=== PATIENT | male | born 1985 | race Caucasian/White ===

== ENCOUNTER 2021-08-02 11:05 | Emergency (ER) | payer OTHER, SELFPAY ==
[2021-08-02 11:16] VITALS: BP 144/87; PULSE 112; RESP 18; TEMP 36.8; O2SAT 99
--- NOTE | 2021-08-02 11:16 | ED.URI ---
HPI - URI/Sore Throat General Chief Complaint: Upper Respiratory Infection Stated Complaint: Sinus,Headache Time Seen by Provider: 08/02/21 11:20 Source: patient and RN notes reviewed Mode of arrival: ambulatory Limitations: no limitations History of Present Illness HPI Narrative: 35-year-old male presents with concern for 2 to 3-day history of sinus pain, pressure, ear pressure. He denies cough, fever, bodies, chills, sweats. He reports he has been using Visine and a 5 vitamin C without relief. He reports he has not vaccinated for COVID or flu. He denies known sick contacts. MD elicited complaint: rhinorrhea and nasal congestion Related Data Allergies Allergy/AdvReac Type Severity Reaction Status Date / Time No Known Allergies Allergy Verified 08/02/21 11:23 Review of Systems Review of Systems: CONSTITUTIONAL: Denies malaise, chills, sweats, or fever. EYES: Denies visual changes, redness, or discharge. ENT: Reports rhinorrhea, congestion, sinus pain, otalgia. Denies sore throat. CARDIOVASCULAR: Denies chest pain, palpitations, or edema. RESPIRATORY: Denies cough. Denies dyspnea. GASTROINTESTINAL: Denies abdominal pain, nausea, vomiting, diarrhea SKIN: Denies rash or itching. MUSCULOSKELETAL: Denies myalgia. NEUROLOGIC: Denies headache. All systems reviewed & are unremarkable except as noted in HPI and below PMFSH Comments At time of signature, agree with nursing past medical, surgical, social and family history. There is no relevant family history pertinent to the presenting complaint Exam Narrative: GENERAL: Well-appearing, well-nourished, and in no acute distress. HEAD: Normocephalic EYES: PERRLA, conjunctivae clear ENT: Nares clear, turbinates edematous and erythematous, clear discharge. Mucous membranes moist. TM pearly rucker with dull light reflex bilaterally; no tragal tenderness. Oropharynx not erythematous without lesions. Tonsils not enlarged and without exudate, no drooling, no hoarseness, no trismus, uvula midline. NECK: Supple. No lymphadenopathy CHEST: Clear to auscultation, breath sounds equal. No wheezing, rhonchi, rales, or stridor. No respiratory distress, speaks in full sentences. HEART: Regular rate and rhythm. No murmur heard. SKIN: Warm, dry, no rash. NEURO: Alert and oriented x3. PSYCH: Normal mood and affect Course Course Emergency Course: Patient is aware of diagnosis, understands and agrees to treatment plan. Anticipatory guidance given. Patient agrees to follow-up as directed and is aware of reasons to seek care at the emergency department. Portions of this record may have been created with voice recognition software Level of Care: Express Care Visit Vital Signs Vital signs: Reviewed. MDM - URI/Sore Throat MDM Narrative Medical decision making narrative: Differential diagnosis considered: Gutiérrez virus, strep pharyngitis, allergic rhinitis, upper respiratory tract infection, sinusitis, rhinosinusitis, nasopharyngitis. viral pharyngitis, otitis media, otitis externa, pneumonia, bronchitis, viral cough syndrome, viral syndrome, and influenza. Exam findings show no acute concerns or changes; patient is non-toxic appearing and is in no distress. Patient is appropriate for outpatient treatment and follow-up. Lab Data Attestation: I reviewed the patient's lab results. Critical Care Time Critical Care Time Critical Care Time: No Discharge Plan Discharge Clinical Impression: Upper respiratory infection Qualifiers: URI type: unspecified viral URI Qualified Code(s): J06.9 - Acute upper respiratory infection, unspecified Patient Disposition: Home, Self-Care Condition: Stable Instructions: Upper Respiratory Infection (ED) Additional Instructions: Your COVID and flu tests are negative. Your symptoms are likely caused from a viral illness. Symptomatic treatment of a sinus infection aims to relieve symptoms. These treatments do not shorten the duration of illness. Nonprescription pain
== END 2021-08-02 11:56 | disposition home or self-care (01) ==
PROVIDERS: Emergency Provider Nurse Practitioner
DX: J06.9 Acute upper respiratory infection, unspecified (principal); Z20.822 Contact with and (suspected) exposure to COVID-19
CPT/HCPCS: 87426; 87804; 99203; C9803; G0463

== ENCOUNTER 2022-05-03 09:22 | Emergency (ER) | payer OTHER, SELFPAY ==
--- NOTE | 2022-05-03 09:24 | ED.ABDPAIN ---
HPI - Abdominal Pain General Chief Complaint: Nausea/Vomiting/Diarrhea Stated Complaint: Abdominal Pain Time Seen by Provider: 05/03/22 09:24 Source: patient Mode of arrival: ambulatory Limitations: no limitations History of Present Illness HPI narrative: Vikas is a 36-year-old male patient presenting to the clinic today with complaints of heartburn, nausea, and vomiting. He reports he vomited 2 days ago and thought he had will was coffee-ground emesis. He reports that he has gone through known divorce and has been a heavy drinker for the past year. States he drinks vodka 1 pt per day routinely. States he does get frequent heartburn. He denies any abdominal pain currently. He denies having any pain after eating. He reports that vomiting was only 1 time however he still has some nausea. He denies any blood in his stools. Last bowel movement was yesterday. He is passing gas normally. He is anxious in the clinic today. Related Data Allergies Allergy/AdvReac Type Severity Reaction Status Date / Time No Known Allergies Allergy Verified 05/03/22 10:02 Review of Systems Review of Systems: Pertinent positives per HPI. Patient denies any fever, chills, rash, headache, visual changes, dizziness, cough, runny nose, sore throat, shortness of breath, chest pain, palpitations, diarrhea, constipation, or any urinary issues. PMFSH Comments At the time of my signature, I reviewed and agree with the nursing past medical, surgical, social, and family history. There is no relevant family history pertinent to the patient complaint. Exam Narrative: General: Well-developed, well nourished, anxious appearing Head: Normocephalic, atraumatic. Cardio: Regular rate and rhythm, s1 and s2 normal, no murmur appreciated. Resp: Clear to auscultation bilaterally, no rhonchi, rales, wheezing or rubs. Abdomen: Soft, pliable, bowel sounds present in all quadrants, non-tender to palpation, no organomegly, no CVAT tenderness. Course Course Emergency Course: Portions of this record may have been created with voice recognition software. Level of Care: Express Care Visit Vital Signs Vital signs: Vital Signs Temperature 37.2 C 05/03/22 09:58 Pulse Rate 135 H 05/03/22 09:58 Respiratory Rate 18 05/03/22 09:58 Blood Pressure 146/89 H 05/03/22 09:58 Pulse Oximetry 99 05/03/22 09:58 Oxygen Delivery Room Air 05/03/22 09:58 Temperature 37.2 C 05/03/22 09:58 Pulse Rate 135 H 05/03/22 09:58 Respiratory Rate 18 05/03/22 09:58 Blood Pressure 146/89 H 05/03/22 09:58 Pulse Oximetry 99 05/03/22 09:58 Oxygen Delivery Room Air 05/03/22 09:58 Vital signs reviewed MDM - Abdominal Pain MDM Narrative Medical decision making narrative: At the time of visit patient is resting on the exam table. I suspect patient has GERD/nausea vomiting. Will send in prescription for Protonix and Zofran. Recommend following up with PCP for further workup if symptoms persist. Supportive measures were discussed with the patient he voiced understanding of discharge instructions agrees to treatment plan Differential Diagnosis Differential diagnosis: Likely abdominal pain, gastroenteritis, pancreatitis and other (GERD) Discharge Plan Discharge Clinical Impression: GERD (gastroesophageal reflux disease) Qualifiers: Esophagitis presence: esophagitis presence not specified Qualified Code(s): K21.9 - Gastro-esophageal reflux disease without esophagitis Nausea & vomiting Qualifiers: Vomiting type: hematemesis Qualified Code(s): K92.0 - Hematemesis Patient Disposition: Home, Self-Care Condition: Stable Instructions: Antibiotic Form Additional Instructions: Take Protonix as prescribed for GERD Take Zofran as needed for nausea Avoid drinking alcohol Increase fluids and stay well hydrated Avoid eating spicy or fatty foods, chocolate, or drinking caffeine. Avoid foods that cause you to feel bloated. Stop smoking [place]
[2022-05-03 09:58] VITALS: BP 146/89; PULSE 135; RESP 18; TEMP 37.2; O2SAT 99
== END 2022-05-03 10:22 | disposition home or self-care (01) ==
PROVIDERS: Emergency Provider Nurse Practitioner Family
DX: K21.9 Gastro-esophageal reflux disease without esophagitis (principal); K92.0 Hematemesis
CPT/HCPCS: 99213; G0463

== ENCOUNTER 2023-03-13 15:10 | Emergency (ER) | payer OTHER, SELFPAY ==
--- NOTE | ~2023-03-13 | XR_ITS ---
XR foot LT min 3V 03/13/2023 16:23 INDICATION: Left foot pain PROCEDURE: 4 views left foot COMPARISON: No prior studies for comparison. FINDINGS: Fracture, dislocation or subluxation is not identified. Lisfranc joint intact. The soft tis sues appear within normal limits. No foreign bodies are identified. IMPRESSION: 1: NO ACUTE BONE OR JOINT ABNORMALITY IDENTIFIED. Reviewed, dictated and finalized at location L. [employer]
[2023-03-13 15:25] VITALS: BP 133/83; PULSE 116; RESP 14; TEMP 38.1; O2SAT 100
--- NOTE | 2023-03-13 16:01 | ED.LOWEXIN ---
HPI - Extremity Injury (Lower) General Chief Complaint: Extremity Injury, Lower Stated Complaint: left foot pain Time Seen by Provider: 03/13/23 16:01 Source: patient Mode of arrival: ambulatory Limitations: no limitations History of Present Illness HPI Narrative: 37 yo M presents with c/o throbbing pain to 2nd and 3rd toes of L foot for 3 wks. Denies injury. Has taken tylenol one or two times a day for the past few days with no relief of pain. All systems reviewed and negative except as noted above. Related Data Home Medications Medication Instructions Recorded Confirmed hydroxyzine pamoate 50 mg capsule See Rx Instructions .Route .COMPLEX 03/13/23 03/13/23 Allergies Allergy/AdvReac Type Severity Reaction Status Date / Time No Known Allergies Allergy Verified 03/13/23 15:56 Review of Systems Review of Systems: CONSTITUTIONAL: Denies fever, chills, or sweats. EYES: Denies visual changes, redness, or discharge. ENT: Denies rhinorrhea, congestion, sore throat, or otalgia. CARDIOVASCULAR: Denies chest pain, palpitations, or edema. RESPIRATORY: Denies cough or dyspnea. GASTROINTESTINAL: Denies abdominal pain, nausea, vomiting, or diarrhea. GENITOURINARY: Denies dysuria or hematuria. SKIN: Denies rash or itching. MUSCULOSKELETAL: Denies back pain, myalgia. Reports pain to 2nd and 3rd toes of L foot. NEUROLOGIC: Denies headache, numbness, or weakness. PSYCHIATRIC: Denies anxiety or depression. All other systems reviewed are negative, except as documented in HPI. PMFSH Comments At time of signature, agree with nursing past medical, surgical, social and family history. There is no relevant family history pertinent to the presenting complaint. Exam Narrative: GENERAL: This is a well-nourished, well-developed patient, in no apparent distress. HEAD: normocephalic, atraumatic. EYES: PERRL. Sclera clear/white. Vision is grossly intact. EARS: External ears normal NOSE: External nose normal NECK: Neck supple, non-tender without lymphadenopathy, masses or thyromegaly. CARDIOVASCULAR: Regular rate and rhythm without murmurs, gallops, or rubs. RESPIRATORY: Clear to auscultation. Breath sounds equal bilaterally. No wheezes, rales, or rhonchi. SKIN: warm, Dry, intact with no suspicious lesions or rash, good texture and turgor. NEURO: awake, alert, and oriented to person, place and time. There were no obvious focal neurologic abnormalities. EXTREMITIES: tenderness to distal aspect 2nd and 3rd metatarsalsa extending into 2nd and 3rd toe. mild swelling. no erythema or warmth noted. no deformity. Course Course Level of Care: Express Care Visit Vital Signs Vital signs: Vital Signs Temperature 38.1 C H 03/13/23 15:25 Pulse Rate 116 H 03/13/23 15:25 Respiratory Rate 14 03/13/23 15:25 Blood Pressure 133/83 03/13/23 15:25 Pulse Oximetry 100 03/13/23 15:25 Temperature 38.1 C H 03/13/23 15:25 Pulse Rate 116 H 03/13/23 15:25 Respiratory Rate 14 03/13/23 15:25 Blood Pressure 133/83 03/13/23 15:25 Pulse Oximetry 100 03/13/23 15:25 reviewed. MDM - Extremity Injury (Lower) MDM Narrative Medical decision making narrative: Patient is aware of diagnosis, understands and agrees to treatment plan. Anticipatory guidance given. Patient agrees to follow-up as directed and is aware of reasons to seek care at the emergency department. Portions of this record may have been created with voice recognition software x-ray of left foot normal. Mild tenderness with swelling. No erythema or warmth. Patient recently in rehab facility for alcohol use. Will treat for gout, recommend follow-up with primary care physician if pain not improving. Imaging Data My impression: agree with radiologist Radiologist's impression: Patient is aware of diagnosis, understands and agrees to treatment plan. Anticipatory guidance given. Patient agrees to follow-up as directed and is aware of reasons to s
== END 2023-03-13 17:04 | disposition home or self-care (01) ==
PROVIDERS: Emergency Provider Nurse Practitioner Family
DX: M10.9 Gout, unspecified (principal)
CPT/HCPCS: 73630; 99213; G0463